=== PATIENT | female | born 1955 | race Caucasian/White ===

== ENCOUNTER 2021-11-30 22:00 | Emergency (ER) | payer MEDICARE ==
[2021-11-30 23:07] LABS: #Basophils 0.1 thou/uL (0.0-0.2); #Eosinphils 0.2 thou/uL (0.0-0.7); #Lymphocytes 1.8 thou/uL (1.20-3.40); #Monocytes 0.5 thou/uL (0.11-0.59); #Neutrophils 4.6 thou/uL (1.40-6.50); %Basophils 1.3 % (0.0-1.0); %Lymphocytes 24.5 % (21.0-51.0); %Monocytes 6.9 % (0.0-10.0); %Neutrophils 64.3 % (42.0-75.0); Hemoglobin 13.8 g/dL (12.0-16.0); Mean Corpuscular HGB CONC 32.7 g/dL (32.0-36.0); Mean Corpuscular Hemoglobin 27.1 pg (27.0-31.0); Mean Platelet Volume 7.6 fL (7.4-10.4); Platelet Count 263 thou/uL (130-400); RBC Distribution Width 12.9 % (11.5-14.5); Red Blood Cell (RBC) Count 5.07 mill/uL (4.20-5.40); White Blood Cell (WBC) Count 7.2 thou/uL (4.8-10.8)
[2021-11-30 23:30] LABS: ALT (SGPT) 14 U/L (8-55); AST (SGOT) 15 U/L (5-34); Albumin 4.2 g/dL (3.4-4.8); Alkaline Phosphatase 88 U/L (40-110); Anion Gap 15 mmol/L (10-20); BUN (Urea Nitrogen) 14 mg/dL (9.8-20.1); Bilirubin, Total 0.4 mg/dL (0.2-1.2); Calc. Creatinine Clearance 0 mL/min (70-130); Calcium 8.7 mg/dL (7.8-10.44); Carbon Dioxide 22 mmol/L (23-31); Chloride 104 mmol/L (98-107); Globulin 2.7 g/dL (2.4-3.5); Glucose 103 mg/dL (80-115); Potassium 3.7 mmol/L (3.5-5.1); Protein, Total 6.9 g/dL (5.8-8.1); Sodium 137 mmol/L (136-145)
[2021-12-01 10:59] LABS: SARS-CoV-2 PCR by NAA DETECTED (NotDetected)
== END 2021-12-01 00:59 | disposition home or self-care (01) ==
LOC: ERS 22:00
DX: U07.1 COVID-19 (principal); J01.90 Acute sinusitis, unspecified; I10 Essential (primary) hypertension; E11.9 Type 2 diabetes mellitus without complications; E78.5 Hyperlipidemia, unspecified; I25.10 Atherosclerotic heart disease of native coronary artery without angina pectoris; K21.9 Gastro-esophageal reflux disease without esophagitis; Z79.82 Long term (current) use of aspirin; Z79.899 Other long term (current) drug therapy
CPT/HCPCS: 71045; 80053; 83880; 84484; 85025; 87804 ×2; 93005; 99285; U0003; U0005; 36415; 87631

== ENCOUNTER 2022-09-25 11:05 | Inpatient (IN) | payer MEDICARE ==
[2022-09-25] MEDS ORDERED: Iopamidol-370 76% 500 ML 1 ML ONE (11:34)
[2022-09-25 12:15] LABS: #Basophils 0.1 thou/uL (0.0-0.2); #Eosinphils 0.2 thou/uL (0.0-0.7); #Lymphocytes 1.6 thou/uL (1.20-3.40); #Monocytes 0.4 thou/uL (0.11-0.59); #Neutrophils 4.1 thou/uL (1.40-6.50); %Basophils 0.8 % (0.0-1.0); %Monocytes 6.7 % (0.0-10.0); %Neutrophils 64.5 % (42.0-75.0); Hemoglobin 13.7 g/dL (12.0-16.0); Mean Corpuscular HGB CONC 32.8 g/dL (32.0-36.0); Mean Corpuscular Hemoglobin 27.3 pg (27.0-31.0); Mean Platelet Volume 8.9 fL (7.4-10.4); Platelet Count 225 10x3/uL (130-400); RBC Distribution Width 13.7 % (11.5-14.5); Red Blood Cell (RBC) Count 5.04 mill/uL (4.20-5.40); White Blood Cell (WBC) Count 6.4 10x3/uL (4.8-10.8)
[2022-09-25 12:36] LABS: ALT (SGPT) 17 U/L (8-55); AST (SGOT) 19 U/L (5-34); Albumin 4.3 g/dL (3.4-4.8); Alkaline Phosphatase 119 U/L (40-110); Anion Gap 16 mmol/L (10-20); BUN (Urea Nitrogen) 17 mg/dL (9.8-20.1); Bilirubin, Total 0.5 mg/dL (0.2-1.2); Calc. Creatinine Clearance 0 mL/min (70-130); Calcium 9.4 mg/dL (7.8-10.44); Carbon Dioxide 22 mmol/L (23-31); Chloride 102 mmol/L (98-107); Estimated GFR 60; Globulin 3.5 g/dL (2.4-3.5); Glucose 239 mg/dL (80-115); Potassium 4.6 mmol/L (3.5-5.1); Protein, Total 7.8 g/dL (5.8-8.1); Sodium 135 mmol/L (136-145)
[2022-09-25] MEDS ORDERED: diphenhydrAMINE 50 MG/ML VIAL ONE (13:01)
[2022-09-25] MEDS ORDERED: Acetaminophen 500 MG TAB ONE (13:01)
[2022-09-25] MEDS ORDERED: Metoclopramide 10 MG/10 ML UDCUP ONE (13:01)
[2022-09-25] MEDS ORDERED: Metoclopramide HCl 10 MG/2 ML VIAL ONE (13:01)
[2022-09-25] MEDS ORDERED: Ondansetron PF 4 MG/2 ML Vial ONE ×2 (13:17→13:43)
[2022-09-25] MEDS ORDERED: Calcium Carbonate 500 MG ChewTAB PO PRN (13:59)
[2022-09-25] MEDS ORDERED: Acetaminophen 325 MG TAB PO PRN (13:59)
[2022-09-25] MEDS ORDERED: Ondansetron PF 4 MG/2 ML Vial IVP PRN (13:59)
[2022-09-25] MEDS ORDERED: Senokot S 8.6-50 MG TAB PO PRN (13:59)
[2022-09-25] MEDS ORDERED: hydrALAZINE 20 MG/ML VIAL SLOW IVP PRN (14:02)
[2022-09-25 15:51] LABS: Bilirubin Negative (Negative); Blood, Urine Negative (Negative); Clarity Clear (Clear); Glucose, Urine (Dipstick) 300 mg/dL (Negative); Ketone, Urine Negative (Negative); Leukocyte Negative Leu/uL (Negative); Nitrite Negative (Negative); Protein, Urine (Dipstick) Negative (Neg-Trace); Specific Gravity, Urine 1.019 (1.002-1.036); Urobilinogen Normal mg/dL (Less than 2)
[2022-09-25] MEDS ORDERED: Dextrose 50% Abboject 50 ML SYRINGE SLOW IVP PRN (17:10)
[2022-09-25] MEDS ORDERED: Dextrose 5% in Water 1,000 ML IV PRN (17:10)
[2022-09-25 18:40] VITALS: BMI 34.8
[2022-09-25] MEDS: Sodium Chloride 0.9% 1,000 ML IV SCH (20:37)
[2022-09-25] MEDS: Rosuvastatin 20 MG TAB PO SCH (20:38)
[2022-09-25] MEDS: Ondansetron ODT 4 MG TAB PO PRN (20:39)
[2022-09-25] MEDS ORDERED: Atorvastatin Calcium 40 MG TAB PO SCH (21:00)
[2022-09-26] MEDS: Sodium Chloride 0.9% 1,000 ML IV SCH (05:46)
[2022-09-26 06:12] LABS: #Basophils 0.1 thou/uL (0.0-0.2); #Eosinphils 0.3 thou/uL (0.0-0.7); #Monocytes 0.5 thou/uL (0.11-0.59); #Neutrophils 3.1 thou/uL (1.40-6.50); %Eosinophils 4.4 % (0.0-10.0); %Lymphocytes 33.6 % (21.0-51.0); %Monocytes 8.4 % (0.0-10.0); %Neutrophils 52.6 % (42.0-75.0); Hemoglobin 11.7 g/dL (12.0-16.0); Mean Corpuscular HGB CONC 32.2 g/dL (32.0-36.0); Mean Corpuscular Hemoglobin 26.8 pg (27.0-31.0); Mean Platelet Volume 8.7 fL (7.4-10.4); Platelet Count 212 10x3/uL (130-400); RBC Distribution Width 13.6 % (11.5-14.5); Red Blood Cell (RBC) Count 4.37 mill/uL (4.20-5.40); White Blood Cell (WBC) Count 5.9 10x3/uL (4.8-10.8)
[2022-09-26 06:16] LABS: Hemoglobin A1c 6.5 % (4.0-6.0)
[2022-09-26 06:39] LABS: ALT (SGPT) 13 U/L (8-55); AST (SGOT) 14 U/L (5-34); Albumin 3.6 g/dL (3.4-4.8); Alkaline Phosphatase 96 U/L (40-110); Anion Gap 13 mmol/L (10-20); BUN (Urea Nitrogen) 14 mg/dL (9.8-20.1); Bilirubin, Total 0.4 mg/dL (0.2-1.2); Calc. Creatinine Clearance 101 mL/min (70-130); Calcium 8.9 mg/dL (7.8-10.44); Carbon Dioxide 22 mmol/L (23-31); Cardiac Risk 4.8 (Less than 4.5); Chloride 107 mmol/L (98-107); Cholesterol 212 mg/dl (< 200 Desired); Estimated GFR 78; Globulin 2.7 g/dL (2.4-3.5); Glucose 135 mg/dL (80-115); HDL Cholesterol 44 mg/dL (>60 Neg Risk); LDL Cholesterol, Calculated 130 mg/dL; Potassium 4.2 mmol/L (3.5-5.1); Protein, Total 6.3 g/dL (5.8-8.1); Sodium 138 mmol/L (136-145); Triglycerides 192 mg/dL (Less than 150)
[2022-09-26] MEDS: Aspirin 81 mg Enteric Coated Tablet PO SCH (09:26)
[2022-09-26] MEDS: Enoxaparin Sodium 40 MG/0.4 ML SYRINGE SC SCH (09:26)
[2022-09-26] MEDS: Clopidogrel Bisulfate 75 MG TAB PO SCH (09:26)
[2022-09-26] MEDS ORDERED: diphenhydrAMINE 25 MG CAP PO SCH (10:30)
[2022-09-26] MEDS ORDERED: Ketorolac Tromethamine 30 MG/ML VIAL IVP SCH ×2 (11:45→21:45)
[2022-09-26] MEDS: Rosuvastatin 20 MG TAB PO SCH (21:08)
[2022-09-26] MEDS: ALPRAZolam 0.25 MG TAB PO SCH (21:08)
[2022-09-26] MEDS: Nortriptyline HCl 25 MG CAP PO SCH (21:10)
[2022-09-27] MEDS: Enoxaparin Sodium 40 MG/0.4 ML SYRINGE SC SCH (09:05)
[2022-09-27] MEDS: Aspirin 81 mg Enteric Coated Tablet PO SCH (09:06)
[2022-09-27] MEDS: Oxybutynin ER 5 MG TAB PO SCH (09:07)
[2022-09-27] MEDS: Clopidogrel Bisulfate 75 MG TAB PO SCH (09:07)
[2022-09-27] MEDS: Carvedilol 25 MG TAB PO SCH (09:08)
[2022-09-27] MEDS: Losartan 25 MG TAB PO SCH (09:09)
[2022-09-27] MEDS: HumaLOG 300 UNITS/3 ML VIAL SC PRN ×3 (13:02→21:57)
[2022-09-27] MEDS ORDERED: Ketorolac Tromethamine 30 MG/ML VIAL IVP PRN (15:09)
[2022-09-27] MEDS: Nortriptyline HCl 25 MG CAP PO SCH (21:57)
[2022-09-27] MEDS: Rosuvastatin 20 MG TAB PO SCH (21:57)
[2022-09-27] MEDS: ALPRAZolam 0.25 MG TAB PO SCH (21:57)
[2022-09-28 08:14] VITALS: BP 136/69; TEMP 97.5
[2022-09-28] MEDS: Enoxaparin Sodium 40 MG/0.4 ML SYRINGE SC SCH (08:59)
[2022-09-28] MEDS: Clopidogrel Bisulfate 75 MG TAB PO SCH (08:59)
[2022-09-28] MEDS: Aspirin 81 mg Enteric Coated Tablet PO SCH (08:59)
[2022-09-28] MEDS: Carvedilol 25 MG TAB PO SCH (08:59)
[2022-09-28] MEDS: Losartan 25 MG TAB PO SCH (09:00)
[2022-09-28] MEDS: Oxybutynin ER 5 MG TAB PO SCH (09:02)
[2022-09-28] MEDS: Ondansetron ODT 4 MG TAB PO PRN (10:01)
== END 2022-09-28 13:40 | disposition home or self-care (01) | DRG 103 ==
LOC: ERS 11:05 → SUATTDRO 11:05 → NEURO 13:59 → OBSVTOIN 09-28 11:06
PROVIDERS: ADMIT Family Medicine; ATTEND Family Medicine
DX: G43.719 Chronic migraine without aura, intractable, without status migrainosus (principal); M50.322 Other cervical disc degeneration at C5-C6 level; Z20.822 Contact with and (suspected) exposure to COVID-19; I10 Essential (primary) hypertension; E78.5 Hyperlipidemia, unspecified; I25.10 Atherosclerotic heart disease of native coronary artery without angina pectoris; M48.02 Spinal stenosis, cervical region; M54.81 Occipital neuralgia; E11.9 Type 2 diabetes mellitus without complications; E66.9 Obesity, unspecified; Z68.34 Body mass index [BMI] 34.0-34.9, adult; Z85.72 Personal history of non-Hodgkin lymphomas; Z88.0 Allergy status to penicillin; Z88.2 Allergy status to sulfonamides; Z88.8 Allergy status to other drugs, medicaments and biological substances; Z88.1 Allergy status to other antibiotic agents; Z91.041 Radiographic dye allergy status
CPT/HCPCS: 36415; 36416; 70450; 70498; 70551; 72141; 80053; 80061; 81003; 83036; 84443; 85025; 87086; 93306; 94760; 96372; 96375; 96376; G0378; J1200; J1650; J1815; J1885; J2405; J2765; J7050; Q0162; Q9967; U0003; U0005